=== PATIENT | female | born 1945 | race Caucasian/White ===

== ENCOUNTER 2016-12-11 11:54 | Emergency (ER) | payer BC, MEDICARE ==
[~2016-12-11] VITALS: Ht 167.6 cm; Wt 86.2 kg
[~2016-12-11 11:54] MED LIST: ASPIR LOW81 MG PO; ASPIRIN325 MG PO; ATROVENT I0.5 MG/2.5 INH; BETAPACE120 MG PO; Coumadin5 MG PO; Diltiazem180 MG PO; ELIQUIS5 M1 PO; LANOXIN250 MCG PO; LEVOFLOXACIN500 MG PO; LIPITOR40 MG PO; LISINOPRIL5 MG PO; LOSARTAN POTASS25 M1 PO; MALTREXONE PO; METOPROLOL TART50 M1 PO; MULTAQ400 MG PO; NEXIUM40 MG PO; NITROSTAT0.4 MG SL; PLAVIX75 M1 PO; PREDNISONE20 M1 PO; RANITIDINE 7575 MG PO; ROBITUSSIN AC 110 ML PO; ROSUVASTATIN CA20 MG PO; SINEMET 10-1001 EACH PO; TOPROL XL100 MG PO; XARE20MG PO; ZESTRIL2.5 MG PO
[2016-12-11 12:10] VITALS: BP 123/56
[2016-12-11 12:27] LABS: BASO % 0.4 % (0.0-1.0); EOS # 0.2 10*3/uL (0.0-0.4); EOS % 2.6 % (1.0-4.0); HEMATOCRIT 42.7 % (37.0-47.0); HEMOGLOBIN 13.8 g/dl (12.0-16.0); LYMPH # 2.3 10*3/uL (1.3-4.4); LYMPH % 33.4 % (27.0-41.0); MEAN CELL VOLUME 90.5 fl (81.0-99.0); MEAN CORPUSCULAR HGB 29.2 pg (27.0-31.0); MEAN CORPUSCULAR HGB CONC 32.3 g/dl (33.0-37.0); MEAN PLATELET VOLUME 9.8 fl (9.6-12.3); MONO # 0.5 10*3/uL (0.1-1.0); MONO % 7.6 % (3.0-9.0); NEUT # 3.9 10*3/uL (2.3-7.9); NEUT % 55.6 % (47.0-73.0); PLATELET COUNT AUTOMATED 457 10*3/uL (130-400); RED BLOOD COUNT 4.72 10*6/uL (4.10-5.10); RED CELL DISTRI WIDTH 13.7 % (0-14.5)
[2016-12-11 12:27] LABS: BILIRUBIN NEGATIVE (NEGATIVE); BLOOD 3+ (NEGATIVE); CLARITY SL CLOUDY (CLEAR); COLOR RED (YELLOW); GLUCOSE NEGATIVE (NEGATIVE); KETONE NEGATIVE (NEGATIVE); LEUKO ESTERASE NEGATIVE (NEGATIVE); NITRITE NEGATIVE (NEGATIVE); PH 5.5 (5.0-9.0); PROTEIN 1+ (NEGATIVE); SPECIFIC GRAVITY <= 1.005 (1.005-1.030); UROBILINOGEN 0.2 E.U./dl (0.2-1.0)
[2016-12-11 12:34] LABS: RBC TNTC rbc/hpf (0-2)
[2016-12-11 12:35] LABS: BACTERIA TRACE; URINE REFLEX COMMENT YES (NO); WBC 0-2 wbc/hpf (0-5)
[2016-12-11 12:35] LABS: PROTHROMBIN TIME 10.7 SECONDS (9.0-12.4)
[2016-12-11 12:44] LABS: ALBUMIN 3.7 gm/dl (3.1-4.5); ALKALINE PHOSPHATASE 80 U/L (45-117); BILIRUBIN, TOTAL 0.5 mg/dl (0.2-1.0); BUN 14 mg/dl (7-24); CARBON DIOXIDE 30 mmol/L (21-32); CHLORIDE 108 mmol/L (98-107); EST GLOM FILT AFRICAN AMERICAN > 60 ml/min; GLUCOSE 98 mg/dL (65-99); POTASSIUM 4.2 mmol/L (3.5-5.1); SGOT/AST 25 IU/L (3-35); SGPT/ALT 30 U/L (12-78); SODIUM 143 mmol/L (136-145)
== END 2016-12-11 14:09 | disposition home or self-care (01) ==
LOC: ED 11:54
PROVIDERS: Nurse Practitioner Family
DX: R31.9 Hematuria, unspecified (principal); R03.0 Elevated blood-pressure reading, without diagnosis of hypertension; K21.9 Gastro-esophageal reflux disease without esophagitis; Z87.891 Personal history of nicotine dependence; Z90.49 Acquired absence of other specified parts of digestive tract; I48.91 Unspecified atrial fibrillation; J45.909 Unspecified asthma, uncomplicated; Z79.82 Long term (current) use of aspirin; Z79.899 Other long term (current) drug therapy; Z88.0 Allergy status to penicillin; Z88.1 Allergy status to other antibiotic agents; Z88.2 Allergy status to sulfonamides

== ENCOUNTER → 2017-01-05 | Outpatient (CLI) | payer BC, MEDICARE | END | disposition home or self-care (01) | LOC: RAD 10:33 | DX: Z13.820 Encounter for screening for osteoporosis (principal); Z01.419 Encounter for gynecological examination (general) (routine) without abnormal findings; N95.9 Unspecified menopausal and perimenopausal disorder; R29.890 Loss of height ==

== ENCOUNTER → 2017-02-04 | Day surgery (SDC) | payer BC, MEDICARE ==
[~2017-02-04] VITALS: Ht 167.6 cm; Wt 89.8 kg
[2017-02-04] VITALS (10 sets, daily range): BP systolic 116–135; BP diastolic 35–78
--- NOTE | ~2017-02-04 | PROC NOTE ---
[place], [place] PROCEDURE NOTE NAME: NELLY LUNA [facility] #: [id number] UNIT #: [id number] ROOM: DOCTOR: SATYA PURI MD BIRTHDATE: [birth year] DOS: 02/04/2017 PREOPERATIVE DIAGNOSIS: History of colonic polyps, positive cologuard test. POSTOPERATIVE DIAGNOSIS: History of colonic polyps, positive cologuard test. PROCEDURE: Colonoscopy (in complete up to 25 cm). ENDOSCOPIST: Satya Puri M.D. WAREHOUSE STOCK CLERK: PGY1. ANESTHESIA: MAC. INDICATIONS: This is a 71-year-old lady with a history of previous colonic polyps and a positive cologuard test who is here for the above-mentioned procedure. The procedure and its complications were explained to the patient in detail preoperatively. Complications that were discussed included but were not limited to, bleeding, colon perforation, missed lesions and prolonged pain. She agreed to proceed. DESCRIPTION OF PROCEDURE: After identifying the patient, the patient was brought to the endoscopy suite and placed in the left lateral position. After time-out procedure was called, IV sedation was administered by the anesthesia team. A digital rectal exam was performed, which was within normal limits. An adult colonoscope was now introduced into the anal canal and advanced sequentially into the rectum and distal sigmoid colon at approximately 25 cm. Despite multiple attempts, the colon negotiated with the help of colonoscope beyond this point. The patient was put in various position as well including left lateral in supine and despite this, the colonoscope could not be advanced beyond 25 cm. At this point, the scope was withdrawn and the patient was brought back to the recovery room in a stable fashion. Base on these findings, the patient is recommended to have either another colonoscopy in the next 4-6 weeks or to proceed with barium enema. These options were explained to the patient's family in detail. I talked with the patient herself and she sees me in the postoperative period. Satya Puri MD CM:PROCNOTE:PROCEDURE NOTE 0930 1210 SATYA PURI MD
== END | disposition home or self-care (01) ==
LOC: SDC 02-02 09:30
DX: Z09 Encounter for follow-up examination after completed treatment for conditions other than malignant neoplasm (principal); Z86.010 Personal history of colon polyps; I25.2 Old myocardial infarction; J45.909 Unspecified asthma, uncomplicated; K21.9 Gastro-esophageal reflux disease without esophagitis; F41.9 Anxiety disorder, unspecified; I25.10 Atherosclerotic heart disease of native coronary artery without angina pectoris; Z98.890 Other specified postprocedural states; H35.30 Unspecified macular degeneration; I48.91 Unspecified atrial fibrillation; Z98.51 Tubal ligation status; Z82.49 Family history of ischemic heart disease and other diseases of the circulatory system; Z53.9 Procedure and treatment not carried out, unspecified reason

== ENCOUNTER → 2018-04-06 | Outpatient (CLI) | payer BC, MEDICARE ==
[~2018-04-06] MED LIST changes: +TOPROL XL50 M1 PO
== END | disposition home or self-care (01) ==
LOC: MAMMO 08:41
DX: Z12.31 Encounter for screening mammogram for malignant neoplasm of breast (principal)

== ENCOUNTER 2018-06-09 19:36 | Inpatient (IN) | payer BC, MEDICARE ==
[~2018-06-09] VITALS: Ht 165.1 cm; Wt 86.0 kg
--- NOTE | ~2018-06-09 | CON ---
[place], [place] REPORT OF CONSULTATION NAME: NELLY LUNA [facility] #: [id number] UNIT #: [id number] ROOM: 504 DOCTOR: OLIVIA PEÑA MD BIRTHDATE: [birth year] DOS: 06/10/2018 CARDIOLOGY CONSULTATION REASON FOR CONSULTATION: Palpitations and chest heaviness. OF PRESENT ILLNESS: The patient was seen today, 06/10/2018, at her bedside for evaluation of chest tightness. She is a 72-year-old woman who has a history of atherosclerotic heart disease. She also has a history of paroxysmal atrial fibrillation. She suffered an acute inferior wall myocardial infarction on 01/15/2015 and was transferred to the [facility], where she underwent placement of a bare metal stent in the right coronary artery. After that, she presented with atrial fibrillation with a rapid ventricular response associated with congestive heart failure. She was seen by electrophysiology at [facility] in [place] and was placed on sotalol. She tolerated the drug well and states that she has felt well since then. She was in her normal state of health until about 2 to 3 weeks ago when she began to feel fluttering in her chest associated with fatigue, increased dyspnea and some chest tightness. She did not have any pain that reminded her of her myocardial infarction. She denied any orthopnea or PND, and denied any peripheral edema or weight change. PAST MEDICAL HISTORY: Includes: 1. Paroxysmal atrial fibrillation, which has been present since about the year 1999. 2. Inferior wall myocardial infarction on 01/15/2015; the patient was treated at the [facility] with a bare metal stent to the right coronary artery. 3. Gastroesophageal reflux disease. 4. Asthma. 5. History of macular degeneration. 6. History of varicose veins, status post vein stripping. 7. Sick sinus syndrome. 8. Status post multiple cardioversions. CURRENT MEDICATIONS: Include apixaban 5 mg b.i.d., aspirin 81 mg per day, losartan 25 mg per day, metoprolol 50 mg once a day, ranitidine 150 mg daily, rosuvastatin 20 mg at bedtime, sotalol 120 mg p.o. b.i.d. ALLERGIES: She lists allergies to PENICILLIN, SULFA, ERYTHROMYCIN and TRIMETHOPRIM. She is also sensitive to AQUILES INHIBITORS, which cause cough. REVIEW OF SYSTEMS: The patient denies diplopia or loss of vision. She denies lightheadedness or syncope. She has been somewhat more breathless and fatigued lately. She denies nausea or vomiting. She denies fevers, chills, sweats or recent weight change. She denies any focal weakness. She denies cough or hemoptysis. She denies any change in bowel or bladder habits, denies blood in her stools or urine. She denies any skin rashes. She denies any peripheral [place], [place] REPORT OF CONSULTATION NAME: NELLY LUNA UNIT #: [id number] ROOM: [facility] DOCTOR: OLIVIA PEÑA MD BIRTHDATE: [birth year] edema. She has not had any recent weight change. She denies fevers or chills. She denies focal weakness. She denies blood in her stools or urine. The remainder of the review of systems is negative except as noted above. FAMILY HISTORY: Negative for early coronary disease. SOCIAL HISTORY: The patient does not smoke or consume alcohol. She states that she has been under stress lately because her emrmiz-ni-jxt is ill and in hospice, and she believes that he may soon. PHYSICAL EXAMINATION: GENERAL: The patient is a well-nourished white female who is awake, alert and oriented. She does not appear uncomfortable. VITAL SIGNS: Pulse is 113 and regular. Blood pressure is 114/69. She is afebrile. She weighs 85.98 kg and has a body mass index of 31.5. HEENT: Normocephalic and atraumatic. Extraocular muscles are intact. Sclerae are clear. Pupils are equal, round and react to light. The oral mucosa is moist. Tongue is midline. NECK: Supple. She has no jugular distention or hepatojugular reflux. Carotids are full. I heard no bruits. She had no neck or supraclavicular masses, no thyromegaly. LUNGS: Respirations are unlabored. Her chest was clear. She had no presacral edema or chest wall tenderness. CARDIOVASCULAR: Her heart had a regular rhythm; the rate was about 110 and 120. She had no murmurs or gallops. The PMI was not displaced. There was no precordial heave, lift or thrill. ABDOMEN: Soft and normally active without masses, organomegaly or bruits. EXTREMITIES: Showed no edema. Peripheral pulses are palpable in the feet. IMAGING: Chest x-ray showed normal sized heart. There was no evidence for infiltrates or vascular congestion. LABORATORY DATA: Hemoglobin is 13.9, white count 7000, platelet count 517,000. Sodium 141, potassium 3.6, chloride 109, CO2 of 24, BUN 15, creatinine 0.65. IMPRESSION: 1. Recurrent atrial flutter with rapid ventricular response. 2. History of atherosclerotic heart disease without any recent signs or symptoms of coronary ischemia. 3. History of prediabetes. 4. Remote history of tobacco abuse. PLAN: The patient was very anxious to leave the hospital because of family concerns. I did speak to our metallurgical engineering teacher neon technician, Dr. Avelino Rubalcava, and discussed the case with him. He felt that since her resting heart rate was not particularly fast and since she showed no signs of heart failure, that she could be managed as an outpatient for now. He recommended that we increase her metoprolol dose from 50 mg daily to twice a day. He recommended continuing the current dose of sotalol for the time being. He did ask that we have the patient call his office on 06/12/2018, to review her response to therapy and [place], [place] REPORT OF CONSULTATION NAME: NELLY LUNA UNIT #: [id number] ROOM: [facility] DOCTOR: OLIVIA PEÑA MD BIRTHDATE: [birth year] will arrange for outpatient followup in [place]. He states that at that point, they can discuss all available options. We will proceed with those recommendations. I thank the hospitalist physicians for asking our advice regarding her care. OLIVIA PEÑA MD CM:CONSTR:REPORT OF CONSULTATION 1711 06/11/18 0526 interface
--- NOTE | ~2018-06-09 | EKG ---
[place], [place] ELECTROCARDIOGRAM REPORT NAME: NELLY LUNA UNIT #: [id number] ROOM: 504 DOCTOR: ANDREW DRAFT REPORT BIRTHDATE: [birth year] [facility] Test Date: 2018-06-09 Test Time: 22:49:11 Pat Name: NELLY LUNA Department: Room: 504 Gender: F Pattern Stamper: Jeanne Roca : 1945 Requested By: STEVEN HOLT Order Number: [id number] Reading MD: Gregorio Zuñiga MD Measurements Intervals [place] Rate: 109 P: 102 [place]: 110 QRS: 12 QRSD: 86 T: -26 QT: 349 QTc: 470 Interpretive Statements Atrial flutter with 2:1 block Borderline low voltage, extremity leads ST depr, consider ischemia, inferior leads Compared to earlier ECG this date, lateral ST-T changes have improved Electronically Signed On 06-09-2018 20:18:39 PST by Gregorio Zuñiga MD CM:EKGRPT:ELECTROCARDIOGRAM REPORT 48 17 STEVEN SOTOMAYOR DRAFT REPORT STEVEN HOLT DO
--- NOTE | ~2018-06-09 | EKG ---
[place], [place] ELECTROCARDIOGRAM REPORT NAME: NELLY LUNA UNIT #: [id number] ROOM: 504 DOCTOR: ANDREW DRAFT REPORT BIRTHDATE: [birth year] [facility] Test Date: 2018-06-10 Test Time: 01:07:09 Pat Name: NELLY LUNA Department: Room: 504 Gender: F Coremaker Floor: LEIGHANN : 1945 Requested By: STEVEN HOLT Order Number: [id number] Reading MD: Gregorio Zuñiga MD Measurements Intervals [place] Rate: 108 P: 239 [place]: 169 QRS: 10 QRSD: 86 T: -35 QT: 366 QTc: 491 Interpretive Statements Atrial flutter with 2:1 A-V block Borderline low voltage, extremity leads ST depr, consider ischemia, inferior leads Compared to ECG 06/09/2018 22:49:11 Atrial flutter is still present No significant change Electronically Signed On 06-10-2018 13:14:56 PST by Gregorio Zuñiga MD CM:EKGRPT:ELECTROCARDIOGRAM REPORT 0107 1314 STEVEN SOTOMAYOR DRAFT REPORT STEVEN HOLT DO
--- NOTE | ~2018-06-09 | EKG ---
[place], [place] ELECTROCARDIOGRAM REPORT NAME: NELLY LUNA UNIT #: [id number] ROOM: 504 DOCTOR: ANDREW DRAFT REPORT BIRTHDATE: [birth year] [facility] Test Date: 2018-06-09 Test Time: 19:38:24 Pat Name: NELLY LUNA Department: Room: 504 Gender: F Hand Leather Trimmer: : 1945 Requested By: STEVEN HOLT Order Number: [id number] Reading MD: Gregorio Zuñiga MD Measurements Intervals [place] Rate: 110 P: 267 [place]: 151 QRS: 17 QRSD: 79 T: -16 QT: 350 QTc: 474 Interpretive Statements Atrial flutter with 2:1 block Borderline low voltage, extremity leads Repol abnrm suggests ischemia, diffuse leads Electronically Signed On 06-09-2018 20:13:37 PST by Gregorio Zuñiga MD CM:EKGRPT:ELECTROCARDIOGRAM REPORT 37 12 STEVEN SOTOMAYOR DRAFT REPORT STEVEN HOLT DO
[~2018-06-09 19:36] MED LIST changes: -TOPROL XL50 M1 PO
[2018-06-09 19:39] VITALS: BP 147/74
[2018-06-09 19:50] LABS: BASO % 0.5 % (0.0-1.0); EOS # 0.4 10*3/uL (0.0-0.4); EOS % 4.2 % (1.0-4.0); HEMATOCRIT 43.4 % (37.0-47.0); LYMPH # 2.5 10*3/uL (1.3-4.4); LYMPH % 28.4 % (27.0-41.0); MEAN CORPUSCULAR HGB 28.4 pg (27.0-31.0); MEAN CORPUSCULAR HGB CONC 32.3 g/dl (33.0-37.0); MONO # 0.7 10*3/uL (0.1-1.0); MONO % 7.3 % (3.0-9.0); NEUT # 5.3 10*3/uL (2.3-7.9); NEUT % 59.3 % (47.0-73.0); PLATELET COUNT AUTOMATED 577 10*3/uL (130-400); RED BLOOD COUNT 4.93 10*6/uL (4.10-5.10); RED CELL DISTRI WIDTH 14.4 % (0-14.5); WHITE BLOOD COUNT 8.9 10*3/uL (4.8-10.8)
[2018-06-09 20:02] LABS: ACT PARTIAL THROMBO TIME 26.1 SECONDS (20.8-31.5)
[2018-06-09 20:06] LABS: ALBUMIN 3.6 gm/dl (3.1-4.5); ALKALINE PHOSPHATASE 82 U/L (45-117); BUN 19 mg/dl (7-24); CHLORIDE 108 mmol/L (98-107); CREATININE 0.96 mg/dL (0.55-1.02); SGOT/AST 28 IU/L (3-35); SGPT/ALT 33 U/L (12-78); SODIUM 141 mmol/L (136-145); TOTAL PROTEIN 7.1 gm/dL (6.4-8.2)
[2018-06-09 20:07] LABS: TROPONIN I < 0.015 ng/ml (<0.045)
[2018-06-09 20:54] VITALS: BP 131/71
[2018-06-09 21:20] VITALS: BP 123/69
[2018-06-10] VITALS: BP 101/61
[2018-06-10 06:44] LABS: BASO % 0.6 % (0.0-1.0); EOS # 0.3 10*3/uL (0.0-0.4); EOS % 3.9 % (1.0-4.0); HEMOGLOBIN 13.9 g/dl (12.0-16.0); LYMPH # 2.3 10*3/uL (1.3-4.4); LYMPH % 33.1 % (27.0-41.0); MEAN CELL VOLUME 87.9 fl (81.0-99.0); MEAN CORPUSCULAR HGB 28.4 pg (27.0-31.0); MEAN CORPUSCULAR HGB CONC 32.3 g/dl (33.0-37.0); MEAN PLATELET VOLUME 10.1 fl (9.6-12.3); MONO # 0.6 10*3/uL (0.1-1.0); MONO % 8.7 % (3.0-9.0); NEUT # 3.7 10*3/uL (2.3-7.9); PLATELET COUNT AUTOMATED 517 10*3/uL (130-400); RED BLOOD COUNT 4.89 10*6/uL (4.10-5.10); RED CELL DISTRI WIDTH 14.3 % (0-14.5)
[2018-06-10 07:14] LABS: ALBUMIN 3.4 gm/dl (3.1-4.5); ALKALINE PHOSPHATASE 75 U/L (45-117); BUN 15 mg/dl (7-24); CHLORIDE 109 mmol/L (98-107); CHOLESTEROL 127 mg/dL (<200); CREATININE 0.65 mg/dL (0.55-1.02); HDL CHOLESTEROL 44 mg/dl (40-60); LDL CHOLESTEROL 70 mg/dL (9-159); PHOSPHOROUS 3.5 mg/dL (2.5-4.9); POTASSIUM 3.6 mmol/L (3.5-5.1); SGOT/AST 23 IU/L (3-35); SGPT/ALT 30 U/L (12-78); SODIUM 141 mmol/L (136-145); TOTAL PROTEIN 6.5 gm/dL (6.4-8.2); TRIGLYCERIDES 63 mg/dl (<150); VLDL CHOLESTEROL 13 mg/dL (6-40)
[2018-06-10 07:21] LABS: VITAMIN D, 25-HYDROXY 22.7 ng/mL (30-100)
[2018-06-10 08:00] VITALS: BP 102/64
[2018-06-10 12:00] VITALS: BP 120/63
[2018-06-10 16:00] VITALS: BP 114/69
[2018-06-10] MEDS ORDERED: TOPROL XL50 M1 PO (16:52)
== END 2018-06-10 17:30 | disposition home or self-care (01) | DRG 206 ==
LOC: ED 19:36 → EDHOLD 20:35 → 5E 20:35
PROVIDERS: Internal Medicine; Student in an Organized Health Care Education/Training Program
DX: M94.0 Chondrocostal junction syndrome [Tietze] (principal); I48.92 Unspecified atrial flutter; R00.0 Tachycardia, unspecified; E87.8 Other disorders of electrolyte and fluid balance, not elsewhere classified; I48.0 Paroxysmal atrial fibrillation; I50.9 Heart failure, unspecified; I49.5 Sick sinus syndrome; F41.9 Anxiety disorder, unspecified; R73.9 Hyperglycemia, unspecified; J45.909 Unspecified asthma, uncomplicated; K21.9 Gastro-esophageal reflux disease without esophagitis; I25.10 Atherosclerotic heart disease of native coronary artery without angina pectoris; E66.9 Obesity, unspecified; Z95.5 Presence of coronary angioplasty implant and graft; I25.2 Old myocardial infarction; Z68.31 Body mass index [BMI] 31.0-31.9, adult; Z90.49 Acquired absence of other specified parts of digestive tract; Z98.51 Tubal ligation status; Z87.891 Personal history of nicotine dependence; Z82.49 Family history of ischemic heart disease and other diseases of the circulatory system; Z80.6 Family history of leukemia; Z88.0 Allergy status to penicillin; Z88.1 Allergy status to other antibiotic agents; Z88.2 Allergy status to sulfonamides; Z79.899 Other long term (current) drug therapy; Z79.82 Long term (current) use of aspirin; Z88.8 Allergy status to other drugs, medicaments and biological substances

== ENCOUNTER → 2018-07-27 | Outpatient (CLI) | payer BC, MEDICARE ==
[~2018-07-27] MED LIST changes: +TOPROL XL50 M1 PO
[2018-07-27 10:22] LABS: BASO % 0.6 % (0.0-1.0); EOS # 0.3 10*3/uL (0.0-0.4); EOS % 4.8 % (1.0-4.0); HEMATOCRIT 44.6 % (37.0-47.0); HEMOGLOBIN 13.8 g/dl (12.0-16.0); LYMPH # 1.9 10*3/uL (1.3-4.4); LYMPH % 29.1 % (27.0-41.0); MEAN CELL VOLUME 89.9 fl (81.0-99.0); MEAN CORPUSCULAR HGB 27.8 pg (27.0-31.0); MEAN CORPUSCULAR HGB CONC 30.9 g/dl (33.0-37.0); MEAN PLATELET VOLUME 10.2 fl (9.6-12.3); MONO # 0.7 10*3/uL (0.1-1.0); MONO % 10.2 % (3.0-9.0); NEUT # 3.5 10*3/uL (2.3-7.9); NEUT % 54.7 % (47.0-73.0); PLATELET COUNT AUTOMATED 542 10*3/uL (130-400); RED BLOOD COUNT 4.96 10*6/uL (4.10-5.10); RED CELL DISTRI WIDTH 14.5 % (0-14.5); WHITE BLOOD COUNT 6.5 10*3/uL (4.8-10.8)
== END | disposition home or self-care (01) ==
LOC: LAB 09:07
PROVIDERS: Family Medicine
DX: K14.6 Glossodynia (principal)

== ENCOUNTER 2018-10-20 22:51 | Inpatient (IN) | payer BC, MEDICARE ==
[~2018-10-20] VITALS: Ht 167 cm; Wt 89.5 kg
--- NOTE | ~2018-10-20 | EKG ---
[place], [place] ELECTROCARDIOGRAM REPORT NAME: NELLY LUNA UNIT #: [id number] ROOM: 521 DOCTOR: ANDREW DRAFT REPORT BIRTHDATE: [birth year] [facility] Test Date: 2018-10-21 Test Time: 14:59:05 Pat Name: NELLY LUNA Department: Room: 521 1 Gender: F Solar Sales Manager: : 1945 Requested By: JELANI BUSBY Order Number: [id number] Reading MD: Jelani Busby MD Measurements Intervals [place] Rate: 104 P: 81 [place]: 158 QRS: 26 QRSD: 88 T: -19 QT: 383 QTc: 504 Interpretive Statements Sinus tachycardia Sinus pause Abnormal R-wave progression, late transition Borderline repolarization abnormality Prolonged QT interval Baseline wander in lead(s) V5,V6 Compared to ECG 06/10/2018 01:07:09 Sinus pause or arrest now present Prolonged QT interval now present Atrial flutter no longer present Possible ischemia no longer present Electronically Signed On 10-23-2018 10:06:52 PDT by Jelani Busby MD CM:EKGRPT:ELECTROCARDIOGRAM REPORT 1459 1006 JELANI BUSBY MD EPIPHANY DRAFT REPORT JELANI BUSBY MD
--- NOTE | ~2018-10-20 | EKG ---
[place], [place] ELECTROCARDIOGRAM REPORT NAME: NELLY LUNA UNIT #: [id number] ROOM: 521 DOCTOR: ANDREW DRAFT REPORT BIRTHDATE: [birth year] [facility] Test Date: 2018-10-23 Test Time: 12:06:20 Pat Name: NELLY LUNA Department: Room: 521 1 Gender: F Multifocal Button Inspector: Melva Cardenas : 1945 Requested By: JELANI BUSBY Order Number: [id number] Reading MD: Jelani Busby MD Measurements Intervals [place] Rate: 56 P: 0 [place]: 149 QRS: 32 QRSD: 86 T: -3 QT: 514 QTc: 497 Interpretive Statements Sinus arrhythmia Borderline low voltage, extremity leads Borderline prolonged QT interval Compared to ECG 06/10/2018 01:07:09 Atrial flutter no longer present Possible ischemia no longer present Electronically Signed On 10-25-2018 9:37:42 PDT by Jelani Busby MD CM:EKGRPT:ELECTROCARDIOGRAM REPORT 1206 0937 JELANI BUSBY MD EPIPHANY DRAFT REPORT JELANI BUSBY MD
--- NOTE | ~2018-10-20 | EKG ---
[place], [place] ELECTROCARDIOGRAM REPORT NAME: NELLY LUNA UNIT #: [id number] ROOM: 521 DOCTOR: ANDREW DRAFT REPORT BIRTHDATE: [birth year] [facility] Test Date: 2018-10-22 Test Time: 06:36:11 Pat Name: NELLY LUNA Department: Room: 521 1 Gender: F Platform Supervisor: Rochelle Bryant : 1945 Requested By: JELANI BUSBY Order Number: [id number] Reading MD: Jelani Busby MD Measurements Intervals [place] Rate: 79 P: [place]: QRS: 3 QRSD: 89 T: -44 QT: 406 QTc: 466 Interpretive Statements Atrial flutter Borderline repolarization abnormality Compared to ECG 06/10/2018 01:07:09 Possible ischemia no longer present Electronically Signed On 10-23-2018 10:11:35 PDT by Jelani Busby MD CM:EKGRPT:ELECTROCARDIOGRAM REPORT 0636 1011 JELANI BUSBY MD EPIPHANY DRAFT REPORT JELANI BUSBY MD
--- NOTE | ~2018-10-20 | PROC NOTE ---
[place], [place] PROCEDURE NOTE [facility] [id number] UNIT #: [id number] ROOM: 521 DOCTOR: NADER BELLA,JELANI BIRTHDATE: [birth year] DOS: The patient underwent a synchronized cardioversion of atrial fibrillation. DIAGNOSIS: Atrial fibrillation. The patient was consented. ANESTHESIA: Supplied sedation with propofol. DESCRIPTION OF PROCEDURE: The patient was cardioverted with 200 joules synchronized biphasic electricity to sinus rhythm without complications. JELANI DOE MD CM:PROCNOTE:PROCEDURE NOTE 1322 0015 JELANI DOE MD
--- NOTE | ~2018-10-20 | EKG ---
[place], [place] ELECTROCARDIOGRAM REPORT NAME: NELLY LUNA UNIT #: [id number] ROOM: 521 DOCTOR: ANDREW DRAFT REPORT BIRTHDATE: [birth year] [facility] Test Date: 2018-10-21 Test Time: 05:01:28 Pat Name: NELLY LUNA Department: Room: 521 Gender: F Precision Honing Machine Operator: Gurvinder Doss : 1945 Requested By: HARSHAD NORTON Order Number: [id number] Reading MD: Bina Busby MD Measurements Intervals [place] Rate: 68 P: [place]: QRS: 28 QRSD: 89 T: -56 QT: 456 QTc: 486 Interpretive Statements Atrial flutter with predominant 3:1 AV block Borderline low voltage, extremity leads Minimal ST depression, inferior leads Compared to ECG 06/10/2018 01:07:09 AV block, advanced (high-grade) now present ST (T wave) deviation now present Possible ischemia no longer present Electronically Signed On 10-23-2018 10:05:53 PDT by Bina Busby MD CM:EKGRPT:ELECTROCARDIOGRAM REPORT 0501 1005 HARSHAD SOTOMAYOR DRAFT REPORT HARSHAD NORTON DO
--- NOTE | ~2018-10-20 | EKG ---
[place], [place] ELECTROCARDIOGRAM REPORT NAME: NELLY LUNA UNIT #: [id number] ROOM: 521 DOCTOR: ANDREW DRAFT REPORT BIRTHDATE: [birth year] [facility] Test Date: 2018-10-21 Test Time: 02:22:36 Pat Name: NELLY LUNA Department: Room: 521 Gender: F Protein Specialist: Rach Tran : 1945 Requested By: HARSHAD NORTON Order Number: [id number] Reading MD: Bina Busby MD Measurements Intervals [place] Rate: 89 P: [place]: QRS: 25 QRSD: 96 T: -4 QT: 424 QTc: 516 Interpretive Statements Atrial flutter with predominant 2:1 AV block Borderline low voltage, extremity leads Minimal ST depression, inferior leads Prolonged QT interval Baseline wander in lead(s) V4,V6 Compared to ECG 06/10/2018 01:07:09 2:1 AV block now present ST (T wave) deviation now present Prolonged QT interval now present Possible ischemia no longer present Electronically Signed On 10-23-2018 10:05:26 PDT by Bina Busby MD CM:EKGRPT:ELECTROCARDIOGRAM REPORT 0222 1005 HARSHAD SOTOMAYOR DRAFT REPORT HARSHAD NORTON DO
--- NOTE | ~2018-10-20 | EKG ---
[place], [place] ELECTROCARDIOGRAM REPORT NAME: NELLY LUNA UNIT #: [id number] ROOM: 521 DOCTOR: ANDREW DRAFT REPORT BIRTHDATE: [birth year] [facility] Test Date: 2018-10-20 Test Time: 22:58:19 Pat Name: NELLY ULNA Department: Room: 521 Gender: F Podiatric Assistant: Rach Tran : 1945 Requested By: HARSHAD NORTON Order Number: [id number] Reading MD: Bina Busby MD Measurements Intervals [place] Rate: 96 P: [place]: QRS: 37 QRSD: 115 T: 2 QT: 388 QTc: 491 Interpretive Statements Atrial fibrillation Nonspecific intraventricular conduction delay Borderline repol abnormality, diffuse leads Compared to ECG 06/10/2018 01:07:09 Intraventricular conduction delay now present Atrial flutter no longer present Possible ischemia no longer present Electronically Signed On 10-23-2018 10:04:23 PDT by Bina Busby MD CM:EKGRPT:ELECTROCARDIOGRAM REPORT 2258 1004 HARSHAD SOTOMAYOR DRAFT REPORT HARSHAD NORTON DO
[2018-10-20 22:54] VITALS: BP 140/94
--- NOTE | 2018-10-20 23:01 | NUR ---
WHILE WE WERE DOING EKG IN ROOM PTS STATES "I THINK MY HEART RATE CAME DOWN" WE LOOKED UP AND PTS HEART RATE WAS 82 DR NORTON NOTIFIED
--- NOTE | 2018-10-20 23:11 | NUR ---
PTS HEART RATE FLUCTUATING FROM 80'S TO 120 DENIES ANY CHEST PAIN DENIES ANY SOB
[2018-10-20 23:30] LABS: BASO % 0.4 % (0.0-1.0); EOS # 0.2 10*3/uL (0.0-0.4); EOS % 3.1 % (1.0-4.0); HEMATOCRIT 39.5 % (37.0-47.0); HEMOGLOBIN 12.3 g/dl (12.0-16.0); LYMPH # 2.3 10*3/uL (1.3-4.4); LYMPH % 32.5 % (27.0-41.0); MEAN CELL VOLUME 89.6 fl (81.0-99.0); MEAN CORPUSCULAR HGB 27.9 pg (27.0-31.0); MEAN CORPUSCULAR HGB CONC 31.1 g/dl (33.0-37.0); MEAN PLATELET VOLUME 10.2 fl (9.6-12.3); MONO # 0.6 10*3/uL (0.1-1.0); MONO % 7.8 % (3.0-9.0); NEUT % 55.4 % (47.0-73.0); PLATELET COUNT AUTOMATED 471 10*3/uL (130-400); RED BLOOD COUNT 4.41 10*6/uL (4.10-5.10); RED CELL DISTRI WIDTH 14.9 % (0-14.5); WHITE BLOOD COUNT 7.2 10*3/uL (4.8-10.8)
[2018-10-20 23:37] LABS: ACT PARTIAL THROMBO TIME 26.9 SECONDS (20.8-31.5); ALBUMIN 3.4 gm/dl (3.1-4.5); ALKALINE PHOSPHATASE 85 U/L (45-117); BUN 19 mg/dl (7-24); CHLORIDE 110 mmol/L (98-107); CREATININE 1.01 mg/dL (0.55-1.02); POTASSIUM 3.7 mmol/L (3.5-5.1); SGOT/AST 35 IU/L (3-35); SGPT/ALT 44 U/L (12-78); SODIUM 142 mmol/L (136-145); TOTAL PROTEIN 6.6 gm/dL (6.4-8.2)
[2018-10-20 23:39] LABS: TROPONIN I < 0.015 ng/ml (<0.045)
--- NOTE | 2018-10-20 23:45 | NUR ---
RECEIVED REPORT FROM LEAH BORREGO
[2018-10-20 23:54] LABS: BILIRUBIN NEGATIVE (NEGATIVE); BLOOD NEGATIVE (NEGATIVE); CLARITY CLEAR (CLEAR); COLOR YELLOW (YELLOW); GLUCOSE NEGATIVE (NEGATIVE); KETONE NEGATIVE (NEGATIVE); LEUKO ESTERASE NEGATIVE (NEGATIVE); NITRITE NEGATIVE (NEGATIVE); SPECIFIC GRAVITY <= 1.005 (1.005-1.030); UROBILINOGEN 0.2 E.U./dl (0.2-1.0)
[2018-10-21 00:46] LABS: WBC 0-2 wbc/hpf (0-5)
--- NOTE | 2018-10-21 01:21 | NUR ---
PT UP TO BATHROOM. DENIES DIZZINESS. GAIT STEADY. RESP EASY AND NONLABORE DON ROOM AIR. NO COMPLAINTS AT THIS TIME.
[2018-10-21 02:00] VITALS: BP 122/64
--- NOTE | 2018-10-21 02:00 | NUR ---
A 73, admitted to 5E, under the services of VARGHESE Covarrubias DO with a diagnosis of UNCONTROLLED AFIB. Chief complaint is AFIB, FAST HR, PALPITATIONS. Patient arrived via stretcher from ER. Monitor applied. Initial assessment completed. Vital signs taken and recorded. VARGHESE COVARRUBIAS DO notified of admission to the unit. Orders received. See assessment for past medical history, medications and allergies. Patient and/or family oriented to unit. [facility] visitation policy reviewed. Clothing/patient valuable form completed. ARTHUR COLBY
--- NOTE | 2018-10-21 02:22 | NUR ---
MED REC UP TO DATE PER PT RECALL.
--- NOTE | 2018-10-21 03:33 | NUR ---
CONSULT CALLED TO 'S ANSWERING SERVICE.
[2018-10-21 05:00] VITALS: BP 117/63
[2018-10-21 05:56] LABS: ALBUMIN 3.4 gm/dl (3.1-4.5); ALKALINE PHOSPHATASE 72 U/L (45-117); BUN 16 mg/dl (7-24); CHLORIDE 111 mmol/L (98-107); CHOLESTEROL 126 mg/dL (<200); CREATININE 0.73 mg/dL (0.55-1.02); HDL CHOLESTEROL 43 mg/dl (40-60); LDL CHOLESTEROL 72 mg/dL (9-159); POTASSIUM 3.8 mmol/L (3.5-5.1); SGOT/AST 26 IU/L (3-35); SGPT/ALT 43 U/L (12-78); SODIUM 145 mmol/L (136-145); TOTAL PROTEIN 6.6 gm/dL (6.4-8.2); TRIGLYCERIDES 56 mg/dl (<150); VLDL CHOLESTEROL 11 mg/dL (6-40)
[2018-10-21 05:58] LABS: BASO % 0.5 % (0.0-1.0); EOS # 0.2 10*3/uL (0.0-0.4); EOS % 2.9 % (1.0-4.0); HEMOGLOBIN 12.5 g/dl (12.0-16.0); LYMPH # 1.9 10*3/uL (1.3-4.4); LYMPH % 30.5 % (27.0-41.0); MEAN CELL VOLUME 90.1 fl (81.0-99.0); MEAN CORPUSCULAR HGB 28.2 pg (27.0-31.0); MEAN CORPUSCULAR HGB CONC 31.3 g/dl (33.0-37.0); MEAN PLATELET VOLUME 10.4 fl (9.6-12.3); MONO # 0.4 10*3/uL (0.1-1.0); MONO % 6.5 % (3.0-9.0); NEUT # 3.7 10*3/uL (2.3-7.9); NEUT % 59.1 % (47.0-73.0); PLATELET COUNT AUTOMATED 455 10*3/uL (130-400); RED BLOOD COUNT 4.44 10*6/uL (4.10-5.10); RED CELL DISTRI WIDTH 14.6 % (0-14.5); WHITE BLOOD COUNT 6.2 10*3/uL (4.8-10.8)
[2018-10-21 07:28] LABS: VITAMIN D, 25-HYDROXY 20.2 ng/mL (30-100)
--- NOTE | 2018-10-21 09:33 | NUR ---
Patient is concerned as to why the frequency of Solatol was changed to daily. Per pharmacy it was due renal function.
--- NOTE | 2018-10-21 09:48 | NUR ---
Contacted Dr. Busby regarding frequency change in Beta pace. Per physician it is ok., he will review labs, order 1 EKG for this afternoon and another EKG tomorrow morning. See orders.
[2018-10-21 12:00] VITALS: BP 100/55; BP 116/62
[2018-10-21 16:00] VITALS: BP 116/79
--- NOTE | 2018-10-21 18:08 | NUR ---
Patient refused 1800 medications. She won't take them unless they are 12 hours apart.
[2018-10-21 20:00] VITALS: BP 128/81
[2018-10-22] VITALS: BP 126/74
--- NOTE | 2018-10-22 08:46 | NUR ---
Notified nursing blueprinting and photocopy supervisor of cardioversion scheduled 10-22-18.
[2018-10-22 09:50] VITALS: BP 126/76
[2018-10-22 12:00] VITALS: BP 134/98
[2018-10-22 12:18] VITALS: BP 130/80
--- NOTE | 2018-10-22 14:04 | NUR ---
Clarified with Lashaun Lay, YIMI and pharmacist that patient brought in her Betapace from home and its listed as Dummie med on [facility]. Per Dr. Mayberry order medication will be changed back to BID as originally written on patients prescription bottle.
[2018-10-22 16:00] VITALS: BP 124/76
[2018-10-22 20:00] VITALS: BP 135/84
[2018-10-23] VITALS: BP 133/89
--- NOTE | 2018-10-23 02:32 | NUR ---
24 HR chart check completed.
[2018-10-23 10:41] VITALS: BP 141/97
[2018-10-23 11:15] VITALS: BP 98/54
[2018-10-23 11:30] VITALS: BP 93/52
[2018-10-23 11:45] VITALS: BP 87/62
[2018-10-23] MEDS ORDERED: BETAPACE120 MG PO (12:55)
--- NOTE | 2018-10-23 14:03 | NUR ---
Meat Grader in to talk to patient. Patient states lives at HOME with . There are NO steps in the home. Physician: JEANCARLOS Pharmacy: [facility] Home health services: NONE Patient's level of ADLs: INDEPENDENT Patient has working utilities: YES DME: NONE Follow-up physician's appointment after d/c: WILL BE MADE BY HOSPITALIST NURSE DIRECTOR ON DISCHARGE Does patient want to access PORTAL?: NO Discharge plan PT STATES SHE LIVES AT HOME WITH HER AND IS INDEPENDENT IN CARE. STATAES SHE HAS NO NEEDS ON DISCHARGE. WILL RETURN HOME ON DISCHARGE. STATES WILL TAKE HER HOME. KATERYNA MEREDITH
--- NOTE | 2018-10-23 15:30 | NUR ---
Discharge instructions reviewed with patient/family. Patient receptive and verbalizes understanding. Follow-up care arranged. Written instructions given to patient/family. Patient was wheeled from unit by staff member and her . Patients personal belongings were accounted for. RALPH TANG
== END 2018-10-23 15:30 | disposition home or self-care (01) | DRG 309 ==
LOC: ED 22:51 → EDHOLD 10-21 00:53 → 5E 10-21 00:53
PROVIDERS: Emergency Medicine; Internal Medicine; ADMIT Internal Medicine
PROC: 5A2204Z Restoration of Cardiac Rhythm, Single (ICD-10-PCS; principal; 2018-10-21)
DX: I48.0 Paroxysmal atrial fibrillation (principal); E44.1 Mild protein-calorie malnutrition; D68.69 Other thrombophilia; I25.10 Atherosclerotic heart disease of native coronary artery without angina pectoris; E87.8 Other disorders of electrolyte and fluid balance, not elsewhere classified; E83.41 Hypermagnesemia; J45.909 Unspecified asthma, uncomplicated; E66.9 Obesity, unspecified; I48.92 Unspecified atrial flutter; H35.30 Unspecified macular degeneration; R73.9 Hyperglycemia, unspecified; K21.9 Gastro-esophageal reflux disease without esophagitis; F41.1 Generalized anxiety disorder; I25.2 Old myocardial infarction; Z88.0 Allergy status to penicillin; Z88.2 Allergy status to sulfonamides; Z88.1 Allergy status to other antibiotic agents; Z88.8 Allergy status to other drugs, medicaments and biological substances; Z90.49 Acquired absence of other specified parts of digestive tract; Z95.5 Presence of coronary angioplasty implant and graft; Z98.51 Tubal ligation status; Z87.891 Personal history of nicotine dependence; Z82.3 Family history of stroke; Z83.3 Family history of diabetes mellitus; Z79.82 Long term (current) use of aspirin; Z79.899 Other long term (current) drug therapy; Z82.49 Family history of ischemic heart disease and other diseases of the circulatory system; Z68.32 Body mass index [BMI] 32.0-32.9, adult

== ENCOUNTER 2018-12-24 01:14 | Emergency (ER) | payer BC, MEDICARE ==
[~2018-12-24] VITALS: Wt 72.6 kg
--- NOTE | ~2018-12-24 | EKG ---
[place], [place] ELECTROCARDIOGRAM REPORT NAME: NELLY LUNA UNIT #: [id number] ROOM: DOCTOR: EPIPHANY DRAFT REPORT BIRTHDATE: [birth year] [facility] Test Date: 2018-12-24 Test Time: 02:00:19 Pat Name: NELLY LUNA Department: ED Room: 7 Gender: F Shampooer: Rach Tran : 1945 Requested By: HARSHAD NORTON Order Number: [id number] Reading MD: Ryan Nelson MD Measurements Intervals [place] Rate: 100 P: [place]: QRS: 37 QRSD: 97 T: -51 QT: 426 QTc: 550 Interpretive Statements Atrial flutter with predominant 2:1 AV block Abnormal R-wave progression, late transition Borderline T abnormalities, inferior leads Prolonged QT interval Baseline wander in lead(s) V5,V6 Compared to ECG 10/23/2018 12:06:20 2:1 AV block now present T-wave abnormality now present Sinus arrhythmia no longer present Electronically Signed On 12-25-2018 7:48:10 PDT by Ryan Nelson MD CM:EKGRPT:ELECTROCARDIOGRAM REPORT 0200 0748 HARSHAD SOTOMAYOR DRAFT REPORT HARSHAD NORTON DO
[2018-12-24 01:54] LABS: BASO % 0.5 % (0.0-1.0); EOS # 0.3 10*3/uL (0.0-0.4); EOS % 3.4 % (1.0-4.0); HEMATOCRIT 43.7 % (37.0-47.0); LYMPH # 2.3 10*3/uL (1.3-4.4); LYMPH % 28.2 % (27.0-41.0); MEAN CELL VOLUME 88.8 fl (81.0-99.0); MEAN CORPUSCULAR HGB 28.5 pg (27.0-31.0); MONO # 0.7 10*3/uL (0.1-1.0); NEUT # 4.8 10*3/uL (2.3-7.9); NEUT % 59.2 % (47.0-73.0); PLATELET COUNT AUTOMATED 522 10*3/uL (130-400); RED BLOOD COUNT 4.92 10*6/uL (4.10-5.10); RED CELL DISTRI WIDTH 14.6 % (0-14.5); WHITE BLOOD COUNT 8.1 10*3/uL (4.8-10.8)
[2018-12-24 02:10] LABS: ALBUMIN 3.5 gm/dl (3.1-4.5); ALKALINE PHOSPHATASE 81 U/L (45-117); BUN 15 mg/dl (7-24); CHLORIDE 110 mmol/L (98-107); CREATININE 0.75 mg/dL (0.55-1.02); POTASSIUM 3.8 mmol/L (3.5-5.1); SGOT/AST 19 IU/L (3-35); SGPT/ALT 29 U/L (12-78); SODIUM 145 mmol/L (136-145); TOTAL PROTEIN 6.7 gm/dL (6.4-8.2); TROPONIN I < 0.015 ng/ml (<0.045)
[2018-12-24 03:20] VITALS: BP 129/79
== END 2018-12-24 03:55 | disposition home or self-care (01) ==
LOC: ED 01:14
PROVIDERS: Emergency Medicine
DX: I48.91 Unspecified atrial fibrillation (principal); I25.2 Old myocardial infarction; J45.909 Unspecified asthma, uncomplicated; I25.10 Atherosclerotic heart disease of native coronary artery without angina pectoris; K21.9 Gastro-esophageal reflux disease without esophagitis; E66.9 Obesity, unspecified; Z68.30 Body mass index [BMI] 30.0-30.9, adult; Z87.891 Personal history of nicotine dependence; Z90.49 Acquired absence of other specified parts of digestive tract; Z88.0 Allergy status to penicillin; Z88.2 Allergy status to sulfonamides; Z88.1 Allergy status to other antibiotic agents; Z88.8 Allergy status to other drugs, medicaments and biological substances; Z79.899 Other long term (current) drug therapy; Z79.82 Long term (current) use of aspirin

== ENCOUNTER → 2019-01-08 | Outpatient (CLI) | payer BC, MEDICARE ==
--- NOTE | ~2019-01-08 | ST ---
[place], [place] EXERCISE STRESS TEST [id number] UNIT #: [id number] ROOM: DOCTOR: JELANI DOE MD BIRTHDATE: [birth year] DOS: 01/08/2019 REFERRING PHYSICIAN: Dr. Alvarez. INDICATION: Shortness of breath, ischemic cardiomyopathy. FINDINGS: The patient underwent standard protocol Lexiscan stress EKG. Baseline EKG is in sinus suhas with a heart rate of 57 with blood pressure 130/72. Peak heart rate was 72 with a blood pressure of 128/70. The patient had no chest pain, no ischemic changes. PVCs were only arrhythmia noted. SUMMARY OF FINDINGS: Unremarkable Lexiscan stress EKG. Please see separate report for perfusion scan and imaging results. JELANI DOE MD CM:STRESS:EXERCISE STRESS TEST REPORT [id number] 0241 JELANI DOE MD
--- NOTE | 2019-01-08 11:53 | NUR ---
INFORMED SIGNED CONSENT OBTAINED FOR LEXISCAN STRESS TEST WITH DR DOE. RESTING EKG SINUS BRADYCARDIA WITH PAC HR 57 BP 130/72. PULSE OX 95% LUNGS CLEAR. PT COMPLETED ONE MINUTE OF A LEXISAN PROTOCOL WITH PT RECEIVING LEXISCAN 0.4MG IV OVER 10 SECONDS. PVC NOTED. NON DIAGNOSTIC ST CHANGES SEEN. LAST RECOVERY HR OF 69 BP 128/70. PT IN STABLE CONDITION, AWIATING NUCLEAR IMAGES.
== END | disposition home or self-care (01) ==
LOC: CARD 06:54
DX: I25.5 Ischemic cardiomyopathy (principal); R06.02 Shortness of breath

== ENCOUNTER → 2019-01-17 | Day surgery (SDC) | payer BC, MEDICARE ==
[~2019-01-17] VITALS: Ht 167.6 cm; Wt 89.4 kg
--- NOTE | ~2019-01-17 | O ---
[place], [place] OPERATIVE NOTE [id number] UNIT #: [id number] ROOM: DOCTOR: PAVEL HADDAD MD BIRTHDATE: [birth year] DOS: 01/17/2019 PREOPERATIVE DIAGNOSIS: Cataract, left eye. POSTOPERATIVE DIAGNOSIS: Cataract, left eye. OPERATION: Extracapsular cataract extraction by phacoemulsification with posterior chamber intraocular lens implantation, left eye. ANESTHESIA: Monitored standby. OPERATIVE FINDINGS AND PROCEDURE: 2% Xylocaine topical anesthetic gel was applied to the eye in the preop area. The patient was taken to the operating room and prepped and draped in the standard fashion for sterile intraocular surgery. A time out procedure was performed verifying correct patient, correct site and corrects lens with Shari Haddad M.D. The operating microscope was swung into position and the lid speculum was inserted. Using a Randi paracentesis blade, a paracentesis was made through clear cornea. Sugarcaine, mixture of lidocaine and epinephrine, was injected into the anterior chamber. Viscoelastic was used to fill the anterior chamber. Using a metal keratome a 2.4 mm self-sealing clear corneal cataract incision was made temporally at the limbus. Using a pre-bent 25 gauge cystotome needle, a standard continuous curvilinear capsulorrhexis was performed. The anterior capsule was removed with forceps. The lens nucleus was hydrodissected and phacoemulsified in the posterior chamber. Cortical material was removed with the irrigation aspiration hand piece and the posterior capsule was then polished with a curet under irrigation. The posterior chamber and capsular bag were filled with viscoelastic. A posterior chamber intraocular lens manufactured by: [employer], Model #[id number] and 22.5 diopters in strength were then inserted into the posterior chamber and within the capsular bag using the lens cartridge and injector system. Viscoelastic was removed using the irrigation aspiration handpiece. The anterior chamber was filled with balanced salt solution through the paracentesis. Both the paracentesis site and cataract incisions were hydrated with BSS and verified to be water-tight and self-sealing. The incision checked to be water-tight using a Weck-Rosibel sponge. The integrity of the cataract wound and ocular tension were checked. Lid speculum and drapes were removed. The patient was transferred from the operating room to the recovery room in satisfactory condition. [place], [place] OPERATIVE NOTE NAME: NELLY LUNA UNIT #: [id number] ROOM: DOCTOR: PAVEL HADDAD MD BIRTHDATE: [birth year] PAVEL HADDAD MD CM:OPRECORD:OPERATIVE NOTE [id number] PAVEL HADDAD MD 01/17/19 1350 interface
[2019-01-17 11:33] VITALS: BP 153/90
[2019-01-17 12:26] VITALS: BP 133/60
[2019-01-17 12:41] VITALS: BP 139/70
[2019-01-17 12:55] VITALS: BP 136/61
== END | disposition home or self-care (01) ==
LOC: SDC 01-11 12:30
DX: H25.812 Combined forms of age-related cataract, left eye (principal); I25.2 Old myocardial infarction; I25.10 Atherosclerotic heart disease of native coronary artery without angina pectoris; J45.909 Unspecified asthma, uncomplicated; K21.9 Gastro-esophageal reflux disease without esophagitis; I48.91 Unspecified atrial fibrillation; E78.5 Hyperlipidemia, unspecified; E66.9 Obesity, unspecified; Z88.0 Allergy status to penicillin; Z88.1 Allergy status to other antibiotic agents; Z88.2 Allergy status to sulfonamides; Z88.8 Allergy status to other drugs, medicaments and biological substances; Z79.01 Long term (current) use of anticoagulants; Z79.82 Long term (current) use of aspirin; Z79.899 Other long term (current) drug therapy; Z98.890 Other specified postprocedural states; Z98.51 Tubal ligation status; Z68.31 Body mass index [BMI] 31.0-31.9, adult; Z82.49 Family history of ischemic heart disease and other diseases of the circulatory system

== ENCOUNTER → 2019-02-21 | Day surgery (SDC) | payer BC, MEDICARE ==
[~2019-02-21] VITALS: Ht 167.6 cm; Wt 88.5 kg
--- NOTE | ~2019-02-21 | O ---
[place], [place] OPERATIVE NOTE [id number] UNIT #: [id number] ROOM: DOCTOR: PAVEL HADDAD MD BIRTHDATE: [birth year] DOS: 02/21/2019 PREOPERATIVE DIAGNOSIS: Cataract, right eye. POSTOPERATIVE DIAGNOSIS: Cataract, right eye. OPERATION: Extracapsular cataract extraction by phacoemulsification with posterior chamber intraocular lens implantation, right eye. ANESTHESIA: Monitored standby. OPERATIVE FINDINGS AND PROCEDURE: 2% Xylocaine topical anesthetic gel was applied to the eye in the preop area. The patient was taken to the operating room and prepped and draped in the standard fashion for sterile intraocular surgery. A time out procedure was performed verifying correct patient, correct site and corrects lens with Shari Haddad M.D. The operating microscope was swung into position and the lid speculum was inserted. Using a Randi paracentesis blade, a paracentesis was made through clear cornea. A mixture of preservative free lidocaine 4% and preservative-free epinephrine 1:1000 in balanced salt solution was injected into the anterior chamber. Viscoelastic was used to fill the anterior chamber. Using a metal keratome a 2.4 mm self-sealing clear corneal cataract incision was made temporally at the limbus. Using a pre-bent 25 gauge cystotome needle, a standard continuous curvilinear capsulorrhexis was performed. The anterior capsule was removed with forceps. The lens nucleus was hydrodissected and phacoemulsified in the posterior chamber. Cortical material was removed with the irrigation aspiration hand piece and the posterior capsule was then polished with a curet under irrigation. The posterior chamber and capsular bag were filled with viscoelastic. A posterior chamber intraocular lens manufactured by: [employer], Model #[id number], and 22.5 diopters in strength were then inserted into the posterior chamber and within the capsular bag using the lens cartridge and injector system. Viscoelastic was removed using the irrigation aspiration handpiece. The anterior chamber was filled with balanced salt solution through the paracentesis. Both the paracentesis site and cataract incisions were hydrated with BSS and verified to be water-tight and self-sealing. The incision checked to be water-tight using a Weck-Rosibel sponge. The integrity of the cataract wound and ocular tension were checked. Lid speculum and drapes were removed. The patient was transferred from the operating room to the recovery room in satisfactory condition. [place], [place] OPERATIVE NOTE NAME: NELLY LUNA UNIT #: [id number] ROOM: DOCTOR: PAVEL HADDAD MD BIRTHDATE: [birth year] PAVEL HADDAD MD CM:OPRECORD:OPERATIVE NOTE [id number] PAVEL HADDAD MD 02/21/19 1421 interface
[2019-02-21 10:40] VITALS: BP 150/86
[2019-02-21 11:57] VITALS: BP 130/70
[2019-02-21 12:13] VITALS: BP 130/70
[2019-02-21 12:25] VITALS: BP 128/68
[2019-02-21 12:44] VITALS: BP 128/68
== END | disposition home or self-care (01) ==
LOC: SDC 02-19 12:30
DX: H25.811 Combined forms of age-related cataract, right eye (principal); I25.2 Old myocardial infarction; I25.10 Atherosclerotic heart disease of native coronary artery without angina pectoris; J45.909 Unspecified asthma, uncomplicated; I48.91 Unspecified atrial fibrillation; K21.9 Gastro-esophageal reflux disease without esophagitis; K44.9 Diaphragmatic hernia without obstruction or gangrene; F41.9 Anxiety disorder, unspecified; F32.9 Major depressive disorder, single episode, unspecified; E66.9 Obesity, unspecified; Z68.31 Body mass index [BMI] 31.0-31.9, adult; Z88.1 Allergy status to other antibiotic agents; Z88.8 Allergy status to other drugs, medicaments and biological substances; Z79.899 Other long term (current) drug therapy; Z95.5 Presence of coronary angioplasty implant and graft; Z98.890 Other specified postprocedural states; Z82.3 Family history of stroke

== ENCOUNTER 2019-05-15 22:29 | Emergency (ER) | payer BC, MEDICARE ==
[~2019-05-15] VITALS: Wt 86.6 kg
--- NOTE | ~2019-05-15 | EKG ---
[place], [place] ELECTROCARDIOGRAM REPORT NAME: NELLY LUNA UNIT #: [id number] ROOM: DOCTOR: EPIPHANY DRAFT REPORT BIRTHDATE: [birth year] [facility] Test Date: 2019-05-15 Test Time: 23:08:13 Pat Name: NELLY LUNA Department: Room: Gender: F [place] Guide: Jeanne Roca : 1945 Requested By: HARSHAD NORTON Order Number: [id number] Reading MD: Megan Alvarez Measurements Intervals Mobile Rate: 62 P: -43 DE: 158 QRS: 26 QRSD: 98 T: -1 QT: 489 QTc: 497 Interpretive Statements Sinus rhythm Supraventricular bigeminy Borderline T abnormalities, inferior leads Compared to ECG 12/24/2018 02:00:19 Atrial premature complex(es) now present Atrial flutter no longer present 2:1 AV block no longer present Prolonged QT interval no longer present T-wave abnormality still present Electronically Signed On 05-16-2019 9:42:24 PST by Megan Alvarez CM:EKGRPT:ELECTROCARDIOGRAM REPORT [id number] HARSHAD SOTOMAYOR DRAFT REPORT HARSHAD NORTON DO
[2019-05-15 23:28] LABS: BASO # 0.1 10*3/uL (0.0-0.1); BASO % 0.6 % (0.0-1.0); EOS # 0.4 10*3/uL (0.0-0.4); EOS % 4.1 % (1.0-4.0); HEMATOCRIT 41.9 % (37.0-47.0); HEMOGLOBIN 13.1 g/dl (12.0-16.0); LYMPH # 2.5 10*3/uL (1.3-4.4); LYMPH % 26.4 % (27.0-41.0); MEAN CELL VOLUME 90.5 fl (81.0-99.0); MEAN CORPUSCULAR HGB 28.3 pg (27.0-31.0); MEAN CORPUSCULAR HGB CONC 31.3 g/dl (33.0-37.0); MONO # 0.8 10*3/uL (0.1-1.0); MONO % 8.4 % (3.0-9.0); NEUT # 5.8 10*3/uL (2.3-7.9); PLATELET COUNT AUTOMATED 536 10*3/uL (130-400); RED BLOOD COUNT 4.63 10*6/uL (4.10-5.10); WHITE BLOOD COUNT 9.6 10*3/uL (4.8-10.8)
[2019-05-15 23:43] LABS: ALBUMIN 3.6 gm/dl (3.1-4.5); ALKALINE PHOSPHATASE 75 U/L (45-117); BUN 18 mg/dl (7-24); CHLORIDE 108 mmol/L (98-107); CREATININE 1.01 mg/dL (0.55-1.02); POTASSIUM 4.2 mmol/L (3.5-5.1); SGOT/AST 20 IU/L (3-35); SGPT/ALT 25 U/L (12-78); SODIUM 142 mmol/L (136-145); TOTAL PROTEIN 6.7 gm/dL (6.4-8.2)
[2019-05-15 23:44] LABS: TROPONIN I < 0.015 ng/ml (<0.045)
[2019-05-16 01:15] VITALS: BP 148/84
== END 2019-05-16 02:05 | disposition short-term general hospital (02) ==
LOC: ED 22:29
PROVIDERS: Emergency Medicine
DX: G45.9 Transient cerebral ischemic attack, unspecified (principal); I25.10 Atherosclerotic heart disease of native coronary artery without angina pectoris; K21.9 Gastro-esophageal reflux disease without esophagitis; I25.2 Old myocardial infarction; E66.9 Obesity, unspecified; I48.0 Paroxysmal atrial fibrillation; Z88.0 Allergy status to penicillin; Z88.2 Allergy status to sulfonamides; Z88.1 Allergy status to other antibiotic agents; Z88.8 Allergy status to other drugs, medicaments and biological substances; Z79.899 Other long term (current) drug therapy; Z79.82 Long term (current) use of aspirin; Z87.891 Personal history of nicotine dependence; Z68.30 Body mass index [BMI] 30.0-30.9, adult

== ENCOUNTER 2019-07-06 10:54 | Emergency (ER) | payer BC, MEDICARE ==
[~2019-07-06] VITALS: Ht 170.1 cm; Wt 89.8 kg
[2019-07-06 10:58] VITALS: BP 155/64
[2019-07-06 11:42] LABS: BASO # 0.1 10*3/uL (0.0-0.1); BASO % 0.6 % (0.0-1.0); EOS # 0.2 10*3/uL (0.0-0.4); EOS % 2.9 % (1.0-4.0); HEMATOCRIT 41.6 % (37.0-47.0); HEMOGLOBIN 12.7 g/dl (12.0-16.0); LYMPH # 2.2 10*3/uL (1.3-4.4); LYMPH % 26.7 % (27.0-41.0); MEAN CELL VOLUME 91.4 fl (81.0-99.0); MEAN CORPUSCULAR HGB 27.9 pg (27.0-31.0); MEAN CORPUSCULAR HGB CONC 30.5 g/dl (33.0-37.0); MEAN PLATELET VOLUME 10.2 fl (9.6-12.3); MONO # 0.6 10*3/uL (0.1-1.0); MONO % 7.6 % (3.0-9.0); NEUT % 61.3 % (47.0-73.0); PLATELET COUNT AUTOMATED 555 10*3/uL (130-400); RED BLOOD COUNT 4.55 10*6/uL (4.10-5.10); RED CELL DISTRI WIDTH 15.2 % (0-14.5); WHITE BLOOD COUNT 8.2 10*3/uL (4.8-10.8)
[2019-07-06 11:55] LABS: ACT PARTIAL THROMBO TIME 28.7 SECONDS (20.0-32.1)
[2019-07-06 11:56] LABS: BILIRUBIN NEGATIVE (NEGATIVE); BLOOD NEGATIVE (NEGATIVE); CLARITY CLEAR (CLEAR); COLOR YELLOW (YELLOW); GLUCOSE NEGATIVE (NEGATIVE); KETONE NEGATIVE (NEGATIVE); LEUKO ESTERASE NEGATIVE (NEGATIVE); NITRITE NEGATIVE (NEGATIVE); UROBILINOGEN 0.2 E.U./dl (0.2-1.0)
[2019-07-06 12:05] LABS: ALBUMIN 3.6 gm/dl (3.1-4.5); ALKALINE PHOSPHATASE 78 U/L (45-117); BUN 13 mg/dl (7-24); CHLORIDE 109 mmol/L (98-107); CREATININE 0.64 mg/dL (0.55-1.02); SGOT/AST 40 IU/L (3-35); SGPT/ALT 40 U/L (12-78); SODIUM 140 mmol/L (136-145); TOTAL PROTEIN 6.7 gm/dL (6.4-8.2)
[2019-07-06 12:07] LABS: TROPONIN I < 0.015 ng/ml (<0.045)
[2019-07-06 12:07] LABS: BACTERIA TRACE
[2019-07-06] MEDS ORDERED: LASIX20 MG PO (13:26)
== END 2019-07-06 13:31 | disposition home or self-care (01) ==
LOC: ED 10:54
PROVIDERS: Emergency Medicine
DX: R00.1 Bradycardia, unspecified (principal); E66.9 Obesity, unspecified; I25.2 Old myocardial infarction; J45.909 Unspecified asthma, uncomplicated; I25.10 Atherosclerotic heart disease of native coronary artery without angina pectoris; K21.9 Gastro-esophageal reflux disease without esophagitis; I48.0 Paroxysmal atrial fibrillation; Z79.01 Long term (current) use of anticoagulants; Z87.891 Personal history of nicotine dependence; Z88.0 Allergy status to penicillin; Z88.2 Allergy status to sulfonamides; Z88.1 Allergy status to other antibiotic agents; Z88.8 Allergy status to other drugs, medicaments and biological substances; Z79.82 Long term (current) use of aspirin; Z79.899 Other long term (current) drug therapy; Z68.30 Body mass index [BMI] 30.0-30.9, adult; Z86.73 Personal history of transient ischemic attack (TIA), and cerebral infarction without residual deficits

== ENCOUNTER → 2020-02-12 | Outpatient (CLI) | payer BC, MEDICARE ==
[~2020-02-12] MED LIST changes: +LASIX20 MG PO
== END | disposition home or self-care (01) ==
LOC: MAMMO 00:37
DX: Z12.31 Encounter for screening mammogram for malignant neoplasm of breast (principal)

== ENCOUNTER → 2020-03-12 | Outpatient (CLI) | payer BC, MEDICARE | END | disposition home or self-care (01) | LOC: MAMMO 01:38 | PROVIDERS: ATTEND Nurse Practitioner Primary Care | DX: N60.02 Solitary cyst of left breast (principal); N63.0 Unspecified lump in unspecified breast ==

== ENCOUNTER → 2020-11-14 | Outpatient (CLI) | payer BC, MEDICARE | END | disposition home or self-care (01) | LOC: RAD 00:45 | PROVIDERS: ATTEND Nurse Practitioner Primary Care | DX: M85.89 Other specified disorders of bone density and structure, multiple sites (principal); E55.9 Vitamin D deficiency, unspecified; Z78.0 Asymptomatic menopausal state ==

== ENCOUNTER → 2021-09-16 | Outpatient (CLI) | payer BC, MEDICARE | END | disposition home or self-care (01) | LOC: MAMMO 08-05 08:00 | PROVIDERS: ATTEND Nurse Practitioner Primary Care | DX: R92.8 Other abnormal and inconclusive findings on diagnostic imaging of breast (principal); R92.2 Inconclusive mammogram ==

== ENCOUNTER → 2021-11-18 | Outpatient (CLI) | payer BC, MEDICARE | END | disposition home or self-care (01) | LOC: US 00:58 | PROVIDERS: ATTEND Obstetrics & Gynecology | DX: N93.0 Postcoital and contact bleeding (principal) ==

== ENCOUNTER → 2022-04-12 | Outpatient (CLI) | payer BC, MEDICARE ==
[2022-04-12 14:59] LABS: EOS % 0.9 % (1.0-4.0); HEMATOCRIT 28.1 % (37.0-47.0); LYMPH # 0.5 10*3/uL (1.3-4.4); LYMPH % 22.1 % (27.0-41.0); MEAN CORPUSCULAR HGB 32.7 pg (27.0-31.0); MEAN CORPUSCULAR HGB CONC 32.7 g/dl (33.0-37.0); MONO # 0.3 10*3/uL (0.1-1.0); MONO % 14.2 % (3.0-9.0); NEUT # 1.4 10*3/uL (2.3-7.9); NEUT % 61.5 % (47.0-73.0); PLATELET COUNT AUTOMATED 141 10*3/uL (130-400); RED BLOOD COUNT 2.81 10*6/uL (4.10-5.10); RED CELL DISTRI WIDTH 15.2 % (0-14.5); WHITE BLOOD COUNT 2.3 10*3/uL (4.8-10.8)
[2022-04-12 15:15] LABS: BUN 20 mg/dl (7-24); CHLORIDE 107 mmol/L (98-107); CHOLESTEROL 177 mg/dL (<200); CREATININE 0.86 mg/dL (0.55-1.02); FREE T4 1.02 ng/dl (0.76-1.46); LDL CHOLESTEROL 92 mg/dL (9-159); POTASSIUM 4.2 mmol/L (3.5-5.1); SGOT/AST 19 IU/L (3-35); SGPT/ALT 21 U/L (12-78); SODIUM 139 mmol/L (136-145); TOTAL PROTEIN 6.8 gm/dL (6.4-8.2); TRIGLYCERIDES 137 mg/dl (<150)
[2022-04-12 15:16] LABS: ALKALINE PHOSPHATASE 80 U/L (45-117)
== END ==
LOC: LAB 14:32
PROVIDERS: ATTEND Nurse Practitioner Primary Care
DX: I10 Essential (primary) hypertension (principal); E55.9 Vitamin D deficiency, unspecified; E61.2 Magnesium deficiency

== ENCOUNTER → 2022-09-20 | Outpatient (CLI) | payer BC, MEDICARE | END | disposition home or self-care (01) | LOC: MAMMO 00:18 | PROVIDERS: ATTEND Internal Medicine Hematology & Oncology | DX: Z12.31 Encounter for screening mammogram for malignant neoplasm of breast (principal); I48.91 Unspecified atrial fibrillation; D47.3 Essential (hemorrhagic) thrombocythemia; Z92.3 Personal history of irradiation ==

== ENCOUNTER → 2022-12-08 | Outpatient (CLI) | payer BC, MEDICARE ==
[2022-12-08 08:35] LABS: ALKALINE PHOSPHATASE 67 U/L (46-116); BUN 13 mg/dl (9-23); CHLORIDE 107 mmol/L (98-107); POTASSIUM 4.1 mmol/L (3.4-5.1); SGPT/ALT 15 U/L (10-49); TOTAL PROTEIN 6.8 gm/dL (6.0-8.0)
== END | disposition home or self-care (01) ==
LOC: LAB 01:34
PROVIDERS: ATTEND Nurse Practitioner Family
DX: I48.0 Paroxysmal atrial fibrillation (principal)

== ENCOUNTER → 2023-03-09 | Outpatient (CLI) | payer BC, MEDICARE ==
[2023-03-09 10:01] LABS: BASO % 0.5 % (0.0-1.0); EOS # 0.1 10*3/uL (0.0-0.4); EOS % 3.4 % (1.0-4.0); LYMPH % 25.4 % (27.0-41.0); MEAN CELL VOLUME 90.3 fl (81.0-99.0); MEAN CORPUSCULAR HGB 29.2 pg (27.0-31.0); MEAN CORPUSCULAR HGB CONC 32.4 g/dl (33.0-37.0); MEAN PLATELET VOLUME 9.1 fl (9.6-12.3); MONO # 0.5 10*3/uL (0.1-1.0); MONO % 12.9 % (3.0-9.0); NEUT # 2.3 10*3/uL (2.3-7.9); NEUT % 56.8 % (47.0-73.0); PLATELET COUNT AUTOMATED 315 10*3/uL (130-400); RED BLOOD COUNT 4.21 10*6/uL (4.10-5.10); RED CELL DISTRI WIDTH 14.6 % (0-14.5); WHITE BLOOD COUNT 4.1 10*3/uL (4.8-10.8)
[2023-03-09 10:30] LABS: ALKALINE PHOSPHATASE 75 U/L (46-116); BUN 19 mg/dl (9-23); CHLORIDE 106 mmol/L (98-107); CHOLESTEROL 164 mg/dL (<200); LDL CHOLESTEROL 95 mg/dL (9-159); POTASSIUM 4.5 mmol/L (3.4-5.1); SGPT/ALT 19 U/L (10-49); TRIGLYCERIDES 88 mg/dl (<150)
== END | disposition home or self-care (01) ==
LOC: LAB 09:37
PROVIDERS: ATTEND Nurse Practitioner Primary Care
DX: E78.2 Mixed hyperlipidemia (principal); I10 Essential (primary) hypertension; E55.9 Vitamin D deficiency, unspecified; R73.09 Other abnormal glucose

== ENCOUNTER → 2023-03-18 | Outpatient (CLI) | payer BC, MEDICARE | END | disposition home or self-care (01) | LOC: RAD 00:53 | PROVIDERS: ATTEND Nurse Practitioner Primary Care | DX: M85.852 Other specified disorders of bone density and structure, left thigh (principal) ==

== ENCOUNTER → 2023-07-12 | Outpatient (CLI) | payer BC, MEDICARE | END | disposition home or self-care (01) | LOC: RAD 10:42 | PROVIDERS: ATTEND Nurse Practitioner Family | DX: J20.9 Acute bronchitis, unspecified (principal); R05.1 Acute cough; Z95.0 Presence of cardiac pacemaker ==

== ENCOUNTER → 2023-08-01 | Outpatient (CLI) | payer BC, MEDICARE ==
[2023-08-01 10:17] LABS: BASO % 0.5 % (0.0-1.0); EOS # 0.1 10*3/uL (0.0-0.4); EOS % 3.3 % (1.0-4.0); LYMPH # 1.2 10*3/uL (1.3-4.4); LYMPH % 29.9 % (27.0-41.0); MEAN CELL VOLUME 90.5 fl (81.0-99.0); MEAN CORPUSCULAR HGB 28.1 pg (27.0-31.0); MEAN PLATELET VOLUME 8.8 fl (9.6-12.3); MONO # 0.4 10*3/uL (0.1-1.0); MONO % 10.1 % (3.0-9.0); NEUT # 2.2 10*3/uL (2.3-7.9); NEUT % 55.9 % (47.0-73.0); PLATELET COUNT AUTOMATED 275 10*3/uL (130-400); RED BLOOD COUNT 4.31 10*6/uL (4.10-5.10); RED CELL DISTRI WIDTH 14.7 % (0-14.5)
[2023-08-01 11:09] LABS: ALKALINE PHOSPHATASE 74 U/L (46-116); BUN 14 mg/dl (9-23); CHLORIDE 108 mmol/L (98-107); CHOLESTEROL 128 mg/dL (<200); LDL CHOLESTEROL 58 mg/dL (9-159); POTASSIUM 4.4 mmol/L (3.4-5.1); SGPT/ALT 24 U/L (5-49); TOTAL PROTEIN 6.8 gm/dL (6.0-8.0); TRIGLYCERIDES 124 mg/dl (<150)
== END ==
LOC: LAB 09:48
PROVIDERS: ATTEND Nurse Practitioner Primary Care
DX: I10 Essential (primary) hypertension (principal); E87.6 Hypokalemia; E55.9 Vitamin D deficiency, unspecified; E78.2 Mixed hyperlipidemia

== ENCOUNTER → 2023-09-08 | Outpatient (CLI) | payer BC, MEDICARE | END | disposition home or self-care (01) | LOC: RAD 01:28 | PROVIDERS: ATTEND Nurse Practitioner Primary Care | DX: M47.816 Spondylosis without myelopathy or radiculopathy, lumbar region (principal); M54.42 Lumbago with sciatica, left side; M47.898 Other spondylosis, sacral and sacrococcygeal region; I70.0 Atherosclerosis of aorta ==

== ENCOUNTER → 2023-11-04 | Outpatient (CLI) | payer BC, MEDICARE ==
[2023-11-04 08:35] LABS: ALKALINE PHOSPHATASE 91 U/L (46-116); BUN 14 mg/dl (9-23); CHLORIDE 107 mmol/L (98-107); POTASSIUM 4.4 mmol/L (3.4-5.1); SGPT/ALT 16 U/L (5-49); TOTAL PROTEIN 6.9 gm/dL (6.0-8.0)
== END | disposition home or self-care (01) ==
LOC: LAB 07:47
PROVIDERS: ATTEND Nurse Practitioner Primary Care
DX: E87.6 Hypokalemia (principal); E83.42 Hypomagnesemia; M80.00XS Age-related osteoporosis with current pathological fracture, unspecified site, sequela

== ENCOUNTER → 2024-01-11 | Outpatient (CLI) | payer BC, MEDICARE ==
[2024-01-11 12:57] LABS: BASO % 0.2 % (0.0-1.0); EOS # 0.1 10*3/uL (0.0-0.4); EOS % 1.5 % (1.0-4.0); HEMATOCRIT 37.4 % (37.0-47.0); LYMPH # 1.3 10*3/uL (1.3-4.4); LYMPH % 31.8 % (27.0-41.0); MEAN CELL VOLUME 89.9 fl (81.0-99.0); MEAN CORPUSCULAR HGB 27.4 pg (27.0-31.0); MEAN CORPUSCULAR HGB CONC 30.5 g/dl (33.0-37.0); MEAN PLATELET VOLUME 9.1 fl (9.6-12.3); MONO # 0.4 10*3/uL (0.1-1.0); MONO % 9.4 % (3.0-9.0); NEUT # 2.3 10*3/uL (2.3-7.9); NEUT % 56.9 % (47.0-73.0); PLATELET COUNT AUTOMATED 299 10*3/uL (130-400); RED BLOOD COUNT 4.16 10*6/uL (4.10-5.10); RED CELL DISTRI WIDTH 15.1 % (0-14.5); WHITE BLOOD COUNT 4.1 10*3/uL (4.8-10.8)
[2024-01-11 13:30] LABS: ALKALINE PHOSPHATASE 83 U/L (46-116); BUN 21 mg/dl (9-23); CHLORIDE 108 mmol/L (98-107); LDH 196 U/L (120-246); POTASSIUM 4.2 mmol/L (3.4-5.1); SGPT/ALT 14 U/L (5-49); TOTAL PROTEIN 6.5 gm/dL (6.0-8.0)
== END | disposition home or self-care (01) ==
LOC: LAB 12:36
PROVIDERS: ATTEND Internal Medicine Hematology & Oncology
DX: C53.9 Malignant neoplasm of cervix uteri, unspecified (principal); M84.40XA Pathological fracture, unspecified site, initial encounter for fracture; D47.3 Essential (hemorrhagic) thrombocythemia; I48.91 Unspecified atrial fibrillation; D51.9 Vitamin B12 deficiency anemia, unspecified; D72.819 Decreased white blood cell count, unspecified; N85.2 Hypertrophy of uterus; Z92.3 Personal history of irradiation

== ENCOUNTER → 2024-02-27 | Outpatient (CLI) | payer BC, MEDICARE ==
[2024-02-27 07:35] LABS: BASO % 0.4 % (0.0-1.0); EOS # 0.1 10*3/uL (0.0-0.4); EOS % 2.1 % (1.0-4.0); LYMPH # 1.6 10*3/uL (1.3-4.4); LYMPH % 32.1 % (27.0-41.0); MEAN CELL VOLUME 90.5 fl (81.0-99.0); MEAN CORPUSCULAR HGB 28.1 pg (27.0-31.0); MEAN PLATELET VOLUME 9.7 fl (9.6-12.3); MONO # 0.6 10*3/uL (0.1-1.0); MONO % 11.9 % (3.0-9.0); NEUT # 2.6 10*3/uL (2.3-7.9); NEUT % 52.9 % (47.0-73.0); PLATELET COUNT AUTOMATED 342 10*3/uL (130-400); RED BLOOD COUNT 4.42 10*6/uL (4.10-5.10); RED CELL DISTRI WIDTH 15.7 % (0-14.5); WHITE BLOOD COUNT 4.9 10*3/uL (4.8-10.8)
[2024-02-27 08:01] LABS: POTASSIUM 4.4 mmol/L (3.4-5.1)
== END | disposition home or self-care (01) ==
LOC: LAB 07:05
PROVIDERS: ATTEND Nurse Practitioner Primary Care
DX: E55.9 Vitamin D deficiency, unspecified (principal); E61.2 Magnesium deficiency; R73.09 Other abnormal glucose

== ENCOUNTER → 2024-05-01 | Outpatient (CLI) | payer BC, MEDICARE | END | disposition home or self-care (01) | LOC: MAMMO 14:14 | PROVIDERS: ATTEND Nurse Practitioner Primary Care | DX: Z12.31 Encounter for screening mammogram for malignant neoplasm of breast (principal) ==

== ENCOUNTER → 2024-07-17 | Outpatient (CLI) | payer BC, MEDICARE ==
[2024-07-17 11:42] LABS: BASO % 0.2 % (0.0-1.0); EOS # 0.2 10*3/uL (0.0-0.4); EOS % 2.7 % (1.0-4.0); HEMATOCRIT 39.6 % (37.0-47.0); MEAN CELL VOLUME 89.2 fl (81.0-99.0); MEAN CORPUSCULAR HGB 27.9 pg (27.0-31.0); MEAN CORPUSCULAR HGB CONC 31.3 g/dl (33.0-37.0); MEAN PLATELET VOLUME 9.4 fl (9.6-12.3); MONO # 0.5 10*3/uL (0.1-1.0); MONO % 9.5 % (3.0-9.0); NEUT % 54.6 % (47.0-73.0); PLATELET COUNT AUTOMATED 339 10*3/uL (130-400); RED BLOOD COUNT 4.44 10*6/uL (4.10-5.10); RED CELL DISTRI WIDTH 14.8 % (0-14.5); WHITE BLOOD COUNT 5.5 10*3/uL (4.8-10.8)
[2024-07-17 12:14] LABS: POTASSIUM 4.6 mmol/L (3.4-5.1); TOTAL PROTEIN 6.9 gm/dL (6.0-8.0)
== END | disposition home or self-care (01) ==
LOC: LAB 11:13
PROVIDERS: ATTEND Nurse Practitioner Primary Care
DX: I10 Essential (primary) hypertension (principal); E83.42 Hypomagnesemia

== ENCOUNTER → 2024-10-09 | Outpatient (CLI) | payer BC, MEDICARE ==
[2024-10-09 11:52] LABS: POTASSIUM 4.6 mmol/L (3.4-5.1)
== END | disposition home or self-care (01) ==
LOC: LAB 11:06
PROVIDERS: ATTEND Nurse Practitioner Primary Care
DX: M80.00XD Age-related osteoporosis with current pathological fracture, unspecified site, subsequent encounter for fracture with routine healing (principal); X58.XXXD Exposure to other specified factors, subsequent encounter

== ENCOUNTER → 2025-02-25 | Outpatient (CLI) | payer BC, MEDICARE | END | disposition home or self-care (01) | LOC: LAB 11:53 | PROVIDERS: ATTEND Orthopaedic Surgery | DX: Z01.818 Encounter for other preprocedural examination (principal); I49.1 Atrial premature depolarization ==

== ENCOUNTER → 2025-05-16 | Outpatient (CLI) | payer BC, MEDICARE ==
[~2025-05-16] MED LIST changes: +MAGNESIUM400 M1 PO; +POTASSIUM CHLO20 ME4 PO
== END ==
LOC: RAD 02:56
PROVIDERS: ATTEND Nurse Practitioner Primary Care
DX: M85.88 Other specified disorders of bone density and structure, other site (principal); Z78.0 Asymptomatic menopausal state

== ENCOUNTER → 2025-05-17 | Outpatient (CLI) | payer BC, MEDICARE ==
[~2025-05-17] MED LIST changes: +DENOSUMAB 60 MG/ML SYRINGE SC ONE
[2025-05-17 10:15] VITALS: BP 135/65
== END | disposition home or self-care (01) ==
LOC: INJECTION 01:32
PROVIDERS: ATTEND Nurse Practitioner Primary Care
DX: M80.00XS Age-related osteoporosis with current pathological fracture, unspecified site, sequela (principal); J45.909 Unspecified asthma, uncomplicated; K21.9 Gastro-esophageal reflux disease without esophagitis; F41.9 Anxiety disorder, unspecified; I25.2 Old myocardial infarction; I25.10 Atherosclerotic heart disease of native coronary artery without angina pectoris; I48.91 Unspecified atrial fibrillation; Z98.51 Tubal ligation status; Z87.891 Personal history of nicotine dependence

== ENCOUNTER → 2025-05-23 | Outpatient (CLI) | payer BC, MEDICARE ==
[~2025-05-23] MED LIST changes: -DENOSUMAB 60 MG/ML SYRINGE SC ONE
[2025-05-23 09:27] LABS: BASO # 0.0 10*3/uL (0.0-0.1); BASO % 0.4 % (0.0-1.0); EOS # 0.1 10*3/uL (0.0-0.4); EOS % 2.6 % (1.0-4.0); MEAN CELL VOLUME 90.3 fl (81.0-99.0); MEAN CORPUSCULAR HGB 27.0 pg (27.0-31.0); MEAN PLATELET VOLUME 9.8 fl (9.6-12.3); MONO # 0.5 10*3/uL (0.1-1.0); MONO % 9.8 % (3.0-9.0); NEUT # 2.5 10*3/uL (2.3-7.9); NEUT % 51.2 % (47.0-73.0); NUCLEATED RED BLOOD CELL 0.0 % (0.0-0.0); NUCLEATED RED BLOOD CELL 0.0 10*3/uL (0.0-0.0); PLATELET COUNT AUTOMATED 361 10*3/uL (130-400); RED CELL DISTRI WIDTH 16.1 % (0-14.5)
[2025-05-23 09:53] LABS: BUN 11 mg/dl (9-23); LDL CHOLESTEROL 46 mg/dL (9-159); SGPT/ALT 14 U/L (5-49)
[2025-05-23 10:46] LABS: VITAMIN D, 25-HYDROXY 50.4 ng/mL (30-100)
== END | disposition home or self-care (01) ==
LOC: MAMMO 01:19 → LAB 01:19 → MAMMO 09:30
PROVIDERS: ATTEND Nurse Practitioner Primary Care
DX: Z12.31 Encounter for screening mammogram for malignant neoplasm of breast (principal); E78.2 Mixed hyperlipidemia; G62.9 Polyneuropathy, unspecified; R92.313 Mammographic fatty tissue density, bilateral breasts